=== PATIENT | male | born 1970 | race Caucasian/White ===

== ENCOUNTER → 2020-02-16 | Outpatient (CLI) | payer OTHER ==
--- NOTE | 2020-02-16 15:55 | XR ---
EXAMINATION TYPE: XR pelvis AP view DATE OF EXAM: 02/16/2020 COMPARISON: 02/16/2020 left hip HISTORY: Fall, injury, pain TECHNIQUE: AP pelvis FINDINGS: Femoral heads articulate with the acetabulum. Sacroiliac joints and symphysis pubis are nor mal. Inferior psoas margins are normal. IMPRESSION: 1. Normal AP pelvis
--- NOTE | 2020-02-16 15:56 | XR ---
EXAMINATION TYPE: XR Hip Complete LT DATE OF EXAM: 02/16/2020 COMPARISON: AP pelvis HISTORY: Fall 12 feet, pain 2 days prior TECHNIQUE: 2 view left hip FINDINGS: Femoral head articulates with the acetabulum. No acute fracture or dislocation is evident. Joint space is preserved. IMPRESSION: 1. Normal 2 view left hip
== END | disposition home or self-care (01) ==
LOC: RADXRYALE 14:04
PROVIDERS: ATTEND Physician Assistant
DX: M25.552 Pain in left hip (principal); W17.89XA Other fall from one level to another, initial encounter
CPT/HCPCS: 72170; 73502